=== PATIENT | female | born 1950 | race Caucasian/White ===

== ENCOUNTER 2022-05-11 14:41 | Emergency (ER) | payer MEDICARE ==
[~2022-05-11 14:41] MED LIST: CEPHALEXIN500 M1 PO; METOPROLOL SUCC25 M1 PO; NORCO 325 MG-51 TA1 PO
[2022-05-11 15:14] LABS: BASO # 0.05 K/mm3 (0.02-0.10); EOS # 0.13 K/mm3 (0.04-0.40); EOS % 1.1 % (1.0-5.0); HEMATOCRIT 42.5 % (37.0-47.0); HEMOGLOBIN 14.3 g/dL (12.5-16.0); LYMPH# 2.22 K/mm3 (1.50-4.00); MEAN CELL VOLUME 96 fl (78-100); MEAN CORPUSCULAR HEMOGLOBIN 32 pg (27-31); MEAN CORPUSCULAR HGB CONC 34 g/dL (33-37); MEAN PLATELET VOLUME 9.6 fl (7.4-10.4); MONO # 0.66 K/mm3 (0.20-0.80); NEU # 8.93 K/mm3 (1.40-6.50); PLATELET COUNT 287 K/mm3 (130-400); RED BLOOD COUNT 4.45 M/mm3 (4.10-5.30)
[2022-05-11 15:30] LABS: POTASSIUM 3.9 mmol/L (3.5-5.1); SODIUM 138 mmol/L (136-145)
[2022-05-11 15:31] LABS: CALCIUM 8.7 mg/dL (8.3-10.5)
[2022-05-11 15:32] LABS: GLUCOSE 136 mg/dL (65-105)
[2022-05-11 15:33] LABS: TOTAL PROTEIN 6.5 g/dL (6.2-8.1)
[2022-05-11 15:34] LABS: CARBON DIOXIDE 24 mmol/L (23-31); TOTAL BILIRUBIN 0.4 mg/dL (0.2-1.2)
[2022-05-11 15:38] LABS: AST-SGOT 14 U/L (5-34)
[2022-05-11 15:39] LABS: ALT/SGPT 14 U/L (0-55)
[2022-05-11 16:08] LABS: TROPONIN-I < 0.030 ng/mL (<0.030)
[2022-05-11 16:22] VITALS: BP 198/90
== END 2022-05-11 16:23 | disposition home or self-care (01) ==
LOC: ED 14:41
PROVIDERS: Family Medicine
DX: R04.2 Hemoptysis (principal); I10 Essential (primary) hypertension; F17.200 Nicotine dependence, unspecified, uncomplicated; Z28.310 Unvaccinated for COVID-19; Z79.899 Other long term (current) drug therapy